=== PATIENT | female | born 1975 | race Caucasian/White ===

== ENCOUNTER 2016-11-25 05:58 | Day surgery (SDC) | payer OTHER ==
[~2016-11-25 05:58] MED LIST: CPAP; ESTROVEN PO; ISOSORBIDE MONO30 M4 PO; MELATONIN10 M6 PO; NORVASC5 M2 PO; PROZAC40 M1 PO
[2016-11-26] MEDS ORDERED: PERCOCET 5-3251 EACH PO (09:51)
== END 2016-11-26 11:45 ==
LOC: WSU 05:58 → SHSC 06:03 → ORW 08:00 → PACU 09:14 → OBGF 10:45
PROC: 0UT94ZZ Resection of Uterus, Percutaneous Endoscopic Approach (ICD-10-PCS; principal; 2016-11-25)
PROC: 0UTC4ZZ Resection of Cervix, Percutaneous Endoscopic Approach (ICD-10-PCS; 2016-11-25)
PROC: 0UT24ZZ Resection of Bilateral Ovaries, Percutaneous Endoscopic Approach (ICD-10-PCS; 2016-11-25)
PROC: 0UT74ZZ Resection of Bilateral Fallopian Tubes, Percutaneous Endoscopic Approach (ICD-10-PCS; 2016-11-25)
PROC: 8E0W4CZ Robotic Assisted Procedure of Trunk Region, Percutaneous Endoscopic Approach (ICD-10-PCS; 2016-11-25)
DX: N83.11 Corpus luteum cyst of right ovary (principal); N83.02 Follicular cyst of left ovary; N83.01 Follicular cyst of right ovary; N83.8 Other noninflammatory disorders of ovary, fallopian tube and broad ligament; I10 Essential (primary) hypertension; I73.9 Peripheral vascular disease, unspecified; E66.01 Morbid (severe) obesity due to excess calories; F32.9 Major depressive disorder, single episode, unspecified; J44.9 Chronic obstructive pulmonary disease, unspecified; G47.33 Obstructive sleep apnea (adult) (pediatric); I25.111 Atherosclerotic heart disease of native coronary artery with angina pectoris with documented spasm; Z79.899 Other long term (current) drug therapy; Z88.0 Allergy status to penicillin; Z87.891 Personal history of nicotine dependence; Z90.49 Acquired absence of other specified parts of digestive tract; Z98.890 Other specified postprocedural states
CPT/HCPCS: J1170; J1580; J3010; J7030; J7121